=== PATIENT | female | born 1995 | race Two or more races ===

== ENCOUNTER 2017-02-17 14:55 | Outpatient (CLI) ==
[2017-02-17 15:11] LABS: BASOPHILS % (AUTO) 0.4 % (0.0-3.0); EOSINOPHILS # (AUTO) 0.1 K/ul (0.0-0.7); EOSINOPHILS % (AUTO) 0.8 % (0.0-7.0); HEMATOCRIT 41.6 % (37.0-47.0); HEMOGLOBIN 13.8 g/dl (12.0-16.0); IMMATURE GRANULOCYTE % (AUTO) 0.4 % (0.0-5.0); LYMPHOCYTES % (AUTO) 20.7 (10.0-50.0); MEAN CORPUSCULAR HEMOGLOBIN 29.4 pg (27.0-31.0); MEAN CORPUSCULAR HGB CONC 33.2 (31.8-35.4); MEAN CORPUSCULAR VOLUME 88.7 fl (81.0-99.0); MONOCYTES # (AUTO) 0.6 K/uL (0.4-2.0); MONOCYTES % (AUTO) 6.7 (0-10); NEUTROPHILS # (AUTO) 6.8 K/ul (2.0-6.9); PLATELET COUNT 297 10^3/uL (140-440); RED BLOOD COUNT 4.69 10^6/ul (4.20-5.40); WHITE BLOOD COUNT 9.62 K/ul (4.6-10.2)
[2017-02-17 15:48] LABS: ALBUMIN 3.7 g/dL (3.4-5.0); ALBUMIN/GLOBULIN RATIO 1.09; BILIRUBIN,TOTAL 0.3 mg/dL (0.00-1.20); BUN/CREATININE RATIO 8.45; CALCIUM 8.8 mg/dL (8.2-10.2); CREATININE 0.71 mg/dL (0.60-1.30); TOTAL PROTEIN 7.1 g/dL (6.4-8.2)
--- NOTE | 2017-02-18 08:04 | MRI ---
EXAM: Brain MRI without contrast. HISTORY: Headache. COMPARISON: None. TECHNIQUE: Multiplanar, multisequence MR images were acquired of the brain without contrast. FINDINGS: The midline structures are central and there is no cerebellar tonsillar ectopia. The rosenda tricles and sulci are normal in size and configuration. There are no abnormal extra-axial fluid col lections. The brain parenchyma has no diffusion restriction to suggest acute hypoperfusion or infarction. The re are no abnormal T2 hyperintensities or foci of dark gradient echo signal. The corpus callosum is normal in configuration. The pituitary gland is unremarkable. There are no intraorbital masses. A moderate mucous retention cyst is present in the left maxillary sinus. Remainder of the paranasal sinuses, middle ears and mastoids are clear. There is mild elkin oidal hypertrophy. Flow voids are present in the major intracranial arteries and dural venous sinuses. On the coronal gradient echo sequence, there is a partially visualized vessel projecting laterally between two larg e branches of the left middle cerebral artery at the left MCA trifurcation. On the axial sections, this corresponds with a vessel. A discrete aneurysm is not identified. IMPRESSION: 1. No intracranial mass, hemorrhage or acute cerebral infarct. 2. Left maxillary sinus mucous retention cyst.
== END 2017-02-17 14:56 | disposition home or self-care (01) ==
LOC: RAD 14:55
PROVIDERS: ATTEND Nurse Practitioner Family
DX: R51 Headache (principal); R42 Dizziness and giddiness
CPT/HCPCS: 36415; 80053; 84443; 85025